=== PATIENT | male | born 1955 | race Caucasian/White ===

== ENCOUNTER 2022-07-24 12:15 | Emergency (ER) | payer OTHER ==
[~2022-07-24] VITALS: Ht 172.7 cm; Wt 81.6 kg
--- NOTE | 2022-07-24 12:36 | NUR ---
Pt seen by . Safety measures in place. Will continue to monitor.
[2022-07-24 12:49] LABS: MEAN CORPUSCULAR HEMOGLOBIN 29.9 uug (23.8-33.4); MEAN CORPUSCULAR VOLUME 86.1 fL (73.0-96.2); PLATELET COUNT (AUTO) 227 K/uL (152-348)
[2022-07-24 13:21] LABS: POTASSIUM 3.1 mmol/L (3.5-5.1)
[2022-07-24 13:33] LABS: BILIRUBIN,TOTAL 0.5 mg/dL (0.2-1.0); TOTAL PROTEIN, SERUM 7.9 g/dL (6.4-8.2)
[2022-07-24] MEDS ORDERED: IV NORMAL SALINE 500 ML BAG IV ONE (13:45)
--- NOTE | 2022-07-24 16:12 | NUR ---
Patient discharged to home in stable condition. Written and verbal after care instructions given. Patient verbalizes understanding of instructions. Stressed follow up or return to ER for worsening s/s.
[2022-07-24 16:13] VITALS: BP 155/90
== END 2022-07-24 16:13 | disposition home or self-care (01) ==
LOC: EDBD 12:15 → ER 12:15
DX: I10 Essential (primary) hypertension (principal); R51.9 Headache, unspecified; R55 Syncope and collapse; E11.9 Type 2 diabetes mellitus without complications; R07.89 Other chest pain
CPT/HCPCS: 99285; 96360; 70450; 71045; 80053; 83880; 85025; 85610; 84484 ×2; 36415; 93005; J7040; A4663